=== PATIENT | male | born 1960 | race Caucasian/White ===

== ENCOUNTER 2019-12-07 19:43 | Emergency (ER) | payer OTHER, SELFPAY ==
--- NOTE | ~2019-12-07 | CT_ITS ---
EXAMINATION: CT cervical spine wo con DATE: 12/07/2019 20:25 INDICATION: Left-sided neck pain and left neck, shoulder and hand numbness while lifting heavy boxes. TECHNIQUE: Computed tomography (CT) of the cervical spine was performed without intravenous contrast. Automated exposure control and iterative reconstruction technique were employed. The dose-length pro duct was 309.11 mGy-cm. COMPARISON: Cervical spine radiographs dated 01/18/2005 FINDINGS: Discectomies with metallic interbody devices at C5-C6 and C6-C7, unclear whether for effusion or disc replacements. Alignment is normal. Vertebral body heights are normal. No fracture. Remaining disc he ights are normal. Mild calcification at the posterior periphery of disc bulge at C4-C5 which only min imally narrows the central canal. Mild bilateral neural foraminal stenosis at C3-C4 resulting from co mbination of mild left facet and uncovertebral and mild to moderate right facet and uncovertebral ost eoarthritis. Less severe mild neural foraminal stenosis related mild facet and/or uncovertebral osteo arthritis on the right at C5-C6 and on the left at C6-C7. Atherosclerotic calcific a cyst at the bila teral carotid bulbs. Visualized portions of the mastoid air cells, sphenoid sinus, middle ear cavitie s, airway and apices of lungs are clear. IMPRESSION: 1. Mild cervical spondylosis with discectomies and either anterior instrumented fusion or likely disc replacements at C5-C6 and C6-C7. Correlate with surgical history. Reviewed, dictated and finalized at location A. [facility]
[2019-12-07 19:58] VITALS: BP 151/73; PULSE 62; RESP 20; TEMP 36.7; O2SAT 98
[2019-12-07] MEDS: KETOROLAC (*BKC) 60 MG/2 ML VIAL IM (20:15)
[2019-12-07] MEDS: ACETAMINOPHEN 500 MG TABLET 1000 MG PO (20:15)
--- NOTE | 2019-12-07 20:50 | ED.NECK ---
HPI - Neck Pain/Injury General Chief Complaint: Neck Pain/Injury <Johanna Mullen PA-C - Last Filed: 12/07/19 21:22> Stated Complaint: neck pain since 11/18/19 <Johanna Mullen PA-C - Last Filed: 12/07/19 21:22> Time Seen by Provider: 12/07/19 19:54 <ADORE Rodas Last Filed: 12/07/19 21:22> Source: patient <ADORE Rodas Last Filed: 12/07/19 21:22> Mode of arrival: ambulatory <ADORE Rodas Last Filed: 12/07/19 21:22> Limitations: no limitations <Johanna Mullen PA-C - Last Filed: 12/07/19 21:22> History of Present Illness HPI Narrative: This is a 59 year old male that presents to the ER for neck pain x 2 weeks. Reports a possible lifting injury before the pain started. Reports constant pain in the neck. Reports the pain radiates down his left arm. Reports tingling in his fingers on the left. Reports he has had surgery of his cervical spine years ago. He called his doctor and was told to come to the ER. Denies fever, headache, weakness, or numbness. <Johanna Mullen PA-C - Last Filed: 12/07/19 21:22> Related Data Allergies/Adverse Reactions: Allergies Allergy/AdvReac Type Severity Reaction Status Date / Time No Known Allergies Allergy Mild Verified 12/07/19 20:07 <Johanna Mullen PA-C - Last Filed: 12/07/19 21:22> Review of Systems Review of Systems: Narrative: CONSTITUTIONAL: Denies fever SKIN: Denies rash MUSCULOSKELETAL: Reports joint pain, and myalgia. NEUROLOGIC: Denies numbness, or weakness. <ADORE Rodas Last Filed: 12/07/19 21:22> All systems reviewed & are unremarkable except as noted in HPI and below <ADORE Rodas Last Filed: 12/07/19 21:22> [facility] Past Medical History Medical History: Medical History (Updated 12/07/19 @ 21:22 by Johanna Mullen PA-C) History of coronary artery disease <Johanna Mullen PA-C - Last Filed: 12/07/19 21:22> Surgical History Surgical History: Surgical History (Updated 12/07/19 @ 21:03 by Johanna Mullen PA-C) History of neck surgery <Johanna Mullen PA-C - Last Filed: 12/07/19 21:22> Social History Social History: Social History (Updated 12/07/19 @ 21:04 by Johanna Mullen PA-C) Smoking status: Current every day smoker Alcohol intake: current Substance use: never <Johanna Mullen PA-C - Last Filed: 12/07/19 21:22> Exam Narrative: Exam Narrative: GENERAL: Well-appearing, well-nourished, and in no acute distress. HEAD: Normocephalic, atraumatic. EYES: EOMI. NECK: Supple. No adenopathy or masses. Left sided trapezius musculature tenderness CHEST: Clear to auscultation. No respiratory distress. No wheezes rales or rhonchi HEART: Regular rate and rhythm. No murmur heard. Normal peripheral pulses. EXTREMITIES: Normal range of motion. No edema. Strength equal in bilateral upper extremities (5/5). Normal radial pulses SKIN: Warm, dry, no rash. NEURO: No focal deficits. Alert and oriented x3. PSYCH: Normal mood and affect <Johanna Mullen PA-C - Last Filed: 12/07/19 21:22> Course Vital Signs Vital signs: Vital Signs Temperature 36.7 C 12/07/19 19:58 Pulse Rate 62 12/07/19 19:58 Respiratory Rate 20 12/07/19 19:58 Blood Pressure 151/73 H 12/07/19 19:58 Pulse Oximetry 98 12/07/19 19:58 Temperature 36.7 C 12/07/19 19:58 Pulse Rate 62 12/07/19 19:58 Respiratory Rate 20 12/07/19 19:58 Blood Pressure 151/73 H 12/07/19 19:58 Pulse Oximetry 98 12/07/19 19:58 <Johanna Mullen PA-C - Last Filed: 12/07/19 21:22> Vital Signs Temperature 36.7 C 12/07/19 19:58 Pulse Rate 62 12/07/19 19:58 Respiratory Rate 20 12/07/19 19:58 Blood Pressure 151/73 H 12/07/19 19:58 Pulse Oximetry 98 12/07/19 19:58 Temperature 36.7 C 12/07/19 19:58 Pulse Rate 62 12/07/19 19:58 Respiratory Rate 20 12/07/19 19:58 Blood Pressure 151/73 H 12/07/19 19:58 Pulse Oximetry 98 12/07/19
== END 2019-12-07 21:47 | disposition home or self-care (01) ==
PROVIDERS: Emergency Provider Emergency Medicine; PCP Family Medicine
DX: M54.2 Cervicalgia (principal); I25.10 Atherosclerotic heart disease of native coronary artery without angina pectoris; F17.200 Nicotine dependence, unspecified, uncomplicated; M47.812 Spondylosis without myelopathy or radiculopathy, cervical region
CPT/HCPCS: 72125; 96372; 99284; A9270; J1885

== ENCOUNTER 2020-09-27 11:16 | Outpatient (CLI) | payer OTHER, SELFPAY ==
--- NOTE | ~2020-09-27 | NM_ITS ---
EXAMINATION: NM joanna stress w perfusion DATE: 09/27/2020 13:58 MANAGER PUBLIC INDICATION: Preop TECHNIQUE: Rest images were obtained following intravenous administration of 8 mCi Tc99m tetrofosmin (Myoview). The patient was infused intravenously with Lexiscan (regadenoson). Then, 26 mCi Tc99m tetr ofosmin (Myoview) was administered intravenously, and stress images were obtained. Data was reconstru cted into short axis and horizontal and vertical long axis SPECT images. Gated SPECT images were also obtained. COMPARISON: None. FINDINGS: There is no definite reversible or fixed perfusion abnormality to suggest ischemia or infar ction. There is no segmental wall motion abnormality. Left ventricular ejection fraction measures 6 8%. IMPRESSION: 1. No definite ischemia or infarct. 2. Normal left ventricular ejection fraction measuring 68%. Reviewed, dictated and finalized at location B. [facility] PUBLIC
--- NOTE | 2020-09-27 11:31 | ECG_ITS ---
Measurements Intervals [place] Rate: 55 P: 10 WY: 124 QRS: 21 QRSD: 94 T: 24 QT: 438 QTc: 422 Interpretive Statements SINUS BRADYCARDIA VOLTAGE CRITERIA FOR LVH BASELINE ARTIFACT- I, II, III, AVR, AVL, AVF BORDERLINE ECG Electronically Signed On 09-27-2020 13:28:25 COLD MEAT CHEF by Jonathan Pollard D.O.
--- NOTE | 2020-09-27 11:31 | EST_ITS ---
Patient Info Name: Enrico Plunkett Age: 60 years : 1960 Gender: Male Ht: 69 in Wt: 140 lbs BSA: 1.75 m2 Exam Date: 09/27/2020 12:26 PM Exam Location: [facility] Stress Patient Status: Outpatient Admit Date: 09/27/2020 Staff Ordering Physician: Maxwell Brower MD Attending Provider: Maxwell Brower MD Exercise Technologist: Josie Esquivel RDCS Exercise Physician: Jonathan Pollard DO Exam Type: CA stress joanna w NM Study Info Indications Z01.810 - Encounter for preprocedural cardiovascular examination A regadenoson stress test was performed. Summary 1. 1. Negative lexiscan stress test for ischemic ST changes by ECG criteria. 2. 2. Baseline hypertension. 3. 3. Nuclear scan to follow and will be reported separately. Please correlate with it. 4. 4. Patient informed of the above results. Protocol: Lexiscan Stress ECG Details Stage: REST Duration (min): 5 min : 12 sec HR (bpm): 56 SBP (mmHg): 184 DBP (mmHg): 96 Stage: REST Duration (min): 5 min : 17 sec HR (bpm): 56 SBP (mmHg): 184 DBP (mmHg): 96 Stage: STAGE 1 Duration (min): 1 min : 0 sec HR (bpm): 56 SBP (mmHg): 182 DBP (mmHg): 92 Stage: RECOVERY Duration (min): 1 min : 0 sec HR (bpm): 70 SBP (mmHg): 182 DBP (mmHg): 92 Stage: RECOVERY Duration (min): 2 min : 0 sec HR (bpm): 65 SBP (mmHg): 172 DBP (mmHg): 84 Stage: RECOVERY Duration (min): 3 min : 0 sec HR (bpm): 67 SBP (mmHg): 180 DBP (mmHg): 80 Stage: RECOVERY Duration (min): 3 min : 5 sec HR (bpm): 65 SBP (mmHg): 180 DBP (mmHg): 80 Rest HR: 56 bpm Peak HR: 74 bpm Rest Sys BP: 184 mmHg Peak Sys BP: 182 mmHg Max Pred HR: 162 bpm % Max Pred HR: 46 % Target HR: 138 bpm Max RPP: 13,468 bpm*mmHg Termination Reason: Completed protocol Cardiac Symptoms: Shortness of breath, Stomach discomfort Total Time: 1 min : 0 sec Rest Qureshi BP: 96 mmHg Peak Qureshi BP: 92 mmHg Total Dose: 0.4 mg Resting ECG Sinus bradycardia. Stress ECG No ST changes. Arrhythmias None. Report Signatures
== END 2020-09-27 11:17 | disposition home or self-care (01) ==
PROVIDERS: PCP Family Medicine; Visit Provider Family Medicine
DX: Z01.810 Encounter for preprocedural cardiovascular examination (principal); I10 Essential (primary) hypertension; E78.2 Mixed hyperlipidemia; F17.209 Nicotine dependence, unspecified, with unspecified nicotine-induced disorders
CPT/HCPCS: 78452; 93005; 93017; A9502; J2785

== ENCOUNTER 2023-06-07 08:49 | Outpatient (CLI) | payer OTHER, SELFPAY ==
[2023-06-07 09:16] LABS: Appearance Urine Clear (Clear); Bilirubin Urine Negative (Negative); Blood Urine Negative (Negative); Color Urine Yellow (Yellow); Glucose Urine UA Negative (Negative); Ketones Urine Negative (Negative); Leukocyte Esterase Ur Negative LEU/UL (NEGATIVE); Nitrate Urine Negative (Negative); Protein Urine Negative (Negative); Urobilinogen Urine 0.2 mg/dL (<2.0)
[2023-06-07 09:19] LABS: Basophils Absolute Auto 0.1 K/mm3 (0.0-0.1); Eosinophils Absolute Auto 0.3 K/mm3 (0-0.3); Eosinophils Percent Auto 3.7 % (0-4.4); Hematocrit 47.4 % (42.0-52.0); Hemoglobin 16.2 g/dL (14.0-18.0); Immature Granulocyte Absolute 0.01 K/mm3 (0.00-0.031); Immature Granulocyte Percent A 0.1 % (0-0.5); Lymphocytes Absolute Auto 2.31 K/mm3 (0.9-3.2); Lymphocytes Percent Auto 31.7 % (18.3-44.2); Mean Corpuscular HGB Conc 34.2 g/dl (32-36); Mean Corpuscular Hemoglobin 35.4 pg (26-34); Mean Corpuscular Volume 103.7 fl (80-100); Mean Platelet Volume 9.2 fl (7.4-10.4); Monocytes Absolute Auto 0.5 K/mm3 (0.1-0.6); Monocytes Percent Auto 6.7 % (2.6-8.5); Neutrophils Absolute Auto 4.1 K/mm3 (1.3-6.7); Neutrophils Percent Auto 56.8 % (45.5-73.1); Platelet Count Result 263 k/mm3 (150-375); Red Blood Count 4.57 M/mm3 (4.6-6.20); Red Cell Distribution Width 14.6 % (11.5-14.5); White Blood Count 7.3 K/mm3 (4.5-10.0)
[2023-06-07 09:27] LABS: Alanine Aminotransferase 44 U/L (6-50); Albumin Level 4.6 g/dL (3.5-5.1); Alkaline Phosphatase 135 U/L (38-126); Anion Gap 8 mmol/L (8-16); Aspartate Amino Transferase 57 U/L (17-59); Bilirubin,Total 0.8 mg/dL (0.2-1.3); Blood Urea Nitrogen 6 mg/dL (9-20); Calcium 9.7 mg/dL (8.4-10.2); Carbon Dioxide 28 mmol/L (22-30); Chloride 101 mmol/L (98-107); Cholesterol 236 mg/dL (0-200); Estimated Glomerular Filt Rate > 60; Glucose 113 mg/dL (65-110); HDL Direct 47 mg/dL; Potassium 4.2 mmol/L (3.4-5.0); Sodium 137 mmol/L (137-145); Triglycerides 254 mg/dL (<150)
[2023-06-07 09:39] LABS: Add Urine Microscopic? NO; LDL Cholesterol Direct 134 mg/dL
[2023-06-07 09:40] LABS: Hemoglobin A1C 5.9 % (<5.7)
[2023-06-07 09:42] LABS: Iron 92 ug/dL (49-181)
[2023-06-07 09:51] LABS: Percent Iron Saturation 27 % (20-50)
[2023-06-07 09:56] LABS: Prostate Specific Antigen 0.2 ng/mL (< OR = 4.0)
[2023-06-07 10:31] LABS: Folic Acid 2.3 ng/mL (2.76->20)
== END 2023-06-07 08:50 | disposition home or self-care (01) ==
LOC: ANHLAB 08:50
PROVIDERS: PCP Family Medicine; Visit Provider Family Medicine
DX: D75.1 Secondary polycythemia (principal); R73.01 Impaired fasting glucose; R79.0 Abnormal level of blood mineral; E78.2 Mixed hyperlipidemia; Z12.5 Encounter for screening for malignant neoplasm of prostate; R20.2 Paresthesia of skin
CPT/HCPCS: 36415; 80053; 80061; 81003; 82607; 82728; 82746; 83036; 83540; 83550; 84153; 84443; 85025; G0103